=== PATIENT | male | born 1970 | race Caucasian/White ===

== ENCOUNTER 2019-01-28 08:31 | Emergency (ER) | payer SELFPAY ==
[2019-01-28] MEDS ORDERED: LIDOCAINE 5% (700 MG) TRANSDERMAL ADH..PATCH TP ONE (09:34)
[2019-01-28] MEDS ORDERED: OXYCODONE-ACETAMINOPHEN 5-325 MG TABLET PO ONE (09:34)
--- NOTE | 2019-01-28 10:09 | RADIOLOGY REPORT (SQ) ---
EXAM DESCRIPTION: CHEST 2 VIEWS COMPLETED DATE/TIME: 01/28/2019 9:56 am REASON FOR STUDY: right thoracic back pain COMPARISON: None. EXAM PARAMETERS: NUMBER OF VIEWS: two views TECHNIQUE: Digital Frontal and Lateral radiographic views of the chest acquired. RADIATION DOSE: NA LIMITATIONS: none FINDINGS: LUNGS AND PLEURA: Lung carrillo are hyperexpanded. No consolidation or effusions. Probable bullous formation in the upper lobes right greater than left. MEDIASTINUM AND HILAR STRUCTURES: No masses or contour abnormalities. HEART AND VASCULAR STRUCTURES: Heart normal size. No evidence for failure. BONES: No acute findings. HARDWARE: None in the chest. OTHER: No other significant finding. IMPRESSION: COPD. No acute findings. TECHNICAL DOCUMENTATION: JOB ID: [id number] [employer]- All Rights Reserved Reading location - IP/workstation name: [email or web address]
--- NOTE | 2019-01-28 10:32 | ER Document Report ---
HPI - HPI Patient complains to provider of: Right upper back pain Time Seen by Provider: 01/28/19 09:27 Onset: Other - 6 weeks Onset/Duration: Persistent Quality of pain: Sharp Pain Level: 5 Context: Patient presents complaining of right upper back pain for the past month and a half. Patient states pain is been worse over the past 2 days. Patient denies any injury. Patient states that pain causes him to stay up at night. Patient denies any midline back tenderness. Patient denies any fever history of IV drug use. Associated Symptoms: Other - Right upper back tenderness. denies: Fever, Headache Exacerbated by: Movement Relieved by: Denies Similar symptoms previously: No Recently seen / treated by doctor: No - ROS ROS below otherwise negative: Yes Systems Reviewed and Negative: Yes All other systems reviewed and negative - CONSTITUTIONAL Constitutional: DENIES: Fever, Chills - NEURO Neurology: DENIES: Headache, Weakness - CARDIOVASCULAR Cardiovascular: DENIES: Chest pain - GASTROINTESTINAL Gastrointestinal: DENIES: Nausea - MUSCULOSKELETAL Musculoskeletal: REPORTS: Back Pain - right upper back pain - DERM Skin Color: Normal Skin Problems: None Past Medical History - General Information source: Patient - Social History Smoking Status: Current Every Day Smoker Smoking Education Provided: Yes Frequency of alcohol use: Occasional Drug Abuse: None Occupation: construction Family History: Reviewed & Not Pertinent Patient has suicidal ideation: No Patient has homicidal ideation: No Pulmonary Medical History: Reports: Hx COPD Renal/ Medical History: Reports: Hx Kidney Stones. Denies: Hx Peritoneal Dialysis Past Surgical History: Reports: Hx Abdominal Surgery - hernia repair Vertical Provider Document - CONSTITUTIONAL Agree With Documented VS: Yes Exam Limitations: No Limitations General Appearance: WD/WN, No Apparent Distress - INFECTION CONTROL TRAVEL OUTSIDE OF THE [place] IN LAST 30 DAYS: No - HEENT HEENT: Atraumatic, Normal ENT Exam, Normocephalic - NECK Neck: Normal Inspection, Supple. negative: Lymphadenopathy-Left, Lymphadenopathy-Right - RESPIRATORY Respiratory: Breath Sounds Normal, No Respiratory Distress, Chest Non-Tender - CARDIOVASCULAR Cardiovascular: Regular Rate, Regular Rhythm, No Murmur Pulses: Normal: Radial - BACK Back: Abnormal Inspection - Right thoracic paraspinal tenderness, right trapezius muscle tenderness, tenderness reproduced with movement of right upper extremity and palpation Notes: No midline spinal tenderness step-off or deformity - MUSCULOSKELETAL/EXTREMETIES Musculoskeletal/Extremeties: MAEW, FROM, Non-Tender - No right shoulder joint tenderness - NEURO Level of Consciousness: Awake, Alert, Appropriate Motor/Sensory: No Motor Deficit, No Sensory Deficit - DERM Integumentary: Warm, Dry, No Rash Course - Re-evaluation Re-evalutation: 01/28/19 10:29 No abnormalities noted on chest x-ray. No midline spinal tenderness. Patient with reproducible muscular pain to the right trapezius area. 01/28/19 11:18 Patient states that he also is having right upper extremity numbness for the past week and decreased range of motion to the neck. Patient is requesting to know what is causing his symptoms and is not satisfied with chest x-ray only to evaluate his problem here today. It with good strength and muscle tone to bilateral upper extremities, 2+ radial pulse bilaterally. 01/28/19 12:[address] Elena, reviewed the patient's MRI results. Dr. Elena recommends discharge at this time with outpatient prescription for a steroid pack and outpatient follow-up with neuro spine orthopedic spine specialty. Recommends follow-up with pain management for likely injection as well. - Vital Signs Vital signs: Temp Pulse Resp BP Pulse Ox 97.6 F 78 18 145/107 H 98 01/28/19 08:35 01/28/19 08:35 01/28/19 08:35 01/28/19 08:35 01/28/19 08:35 - Diagnostic Test Radiology reviewed: Image reviewed, Reports reviewed Discharge - Discharge Clinical Impression: Upper back pain on right side, Cervical radicular pain Condition: Stable Disposition: HOME, SELF-CARE Instructions: Ice & Elevation (OM), Muscle Relaxers (OM), Radiculopathy (OM) Additional Instructions: Return immediately for any new or worsening symptoms Followup with your primary care provider, call tomorrow to make a followup ap pointment Prescriptions: Prednisone [Deltasone 20 mg Tablet] 3 tab PO DAILY 5 Days tablet Cyclobenzaprine HCl [Flexeril 10 Mg Tablet] 10 mg PO TID #15 tablet Lidocaine [Lidoderm 5% (700 mg) Transdermal Patch] 1 patch TP DAILY PRN #[id number] adh..patch PRN Reason: Forms: Smoking Cessation Education, Return to Work Referrals: [facility] [Provider Group] - Follow up as needed [facility] [Provider Group] - Follow up as needed
[2019-01-28 11:12] VITALS: BP 156/87
--- NOTE | 2019-01-28 12:40 | RADIOLOGY REPORT (SQ) ---
EXAM DESCRIPTION: MRI CERVICAL SPINE WITHOUT COMPLETED DATE/TIME: 01/28/2019 12:11 pm REASON FOR STUDY: RUE numb, decreased ROM to neck COMPARISON: None. TECHNIQUE: Sagittal and Axial imaging includes T1, T2, STIR and gradient echo sequences. LIMITATIONS: None. FINDINGS: ALIGNMENT: 3 mm retrolisthesis of C5 on C6. VERTEBRAE: Intact. BONE MARROW: Mild reactive changes. DISCS: Multilevel degenerative signal and moderate disc height loss at the C5-6 level. Mild disc hei ght loss at the C3-4 level and C6-7 level. HARDWARE: None in the spine. CORD AND BASE OF BRAIN: Normal in size and signal intensity. SOFT TISSUES: No soft tissue masses. C1-C2: No significant spinal stenosis. C2-C3: No significant spinal stenosis or exit foraminal stenosis. C3-C4: Mild central canal narrowing due to posterior spondylotic ridging and mild effacement of the a nterior CSF signal. Mild bilateral exit foraminal stenosis. C4-C5: No significant spinal stenosis or exit foraminal stenosis. C5-C6: Moderate central spinal stenosis due to 6 mm central disc protrusion -posterior spondylotic ri dging with effacement of the CSF signal, central canal is narrowed to 6.5 mm. There is mild deformat ion of the anterior spinal cord contour without focal abnormal spinal cord signal. Moderate C5-6 walker ateral neuroforaminal stenosis. C6-C7: No significant spinal stenosis. Mild bilateral exit foraminal stenosis due to posterior spond ylotic ridging. . C7-T1: No significant spinal stenosis or exit foraminal stenosis. UPPER THORACIC: Incompletely imaged. No significant spinal stenosis or exit foraminal stenosis. OTHER: No other significant finding. IMPRESSION: Moderate central spinal stenosis at C5-6 due to 6 mm central disc protrusion -posterior spondylotic ridging with effacement of the CSF signal, central canal is narrowed to 6.5 mm. There is mild deformation at this level of the anterior spinal cord contour without focal abnormal spinal cor d signal. Moderate C5-6 bilateral neuroforaminal stenosis. TECHNICAL DOCUMENTATION: JOB ID: [id number] [employer]- All Rights Reserved Reading location - IP/workstation name: [email or web address]
== END 2019-01-28 13:23 | disposition home or self-care (01) ==
LOC: ER 08:31
DX: M54.6 Pain in thoracic spine (principal); M54.2 Cervicalgia; F17.200 Nicotine dependence, unspecified, uncomplicated; J44.9 Chronic obstructive pulmonary disease, unspecified; Z87.442 Personal history of urinary calculi
CPT/HCPCS: 71046; 72141

== ENCOUNTER 2019-02-20 16:59 | Emergency (ER) | payer SELFPAY ==
--- NOTE | 2019-02-20 17:23 | ER Document Report ---
ED Medical Screen (RME) - General Chief Complaint: Knee Pain Stated Complaint: RIGHT KNEE PAIN Time Seen by Provider: 02/20/19 17:13 Mode of Arrival: Ambulatory Information source: Patient Notes: This 48-year-old male presents to the emergency department with right knee pain and swelling. He reports that he cut his knee last week. The cut itself looks like it is healing. He reports last night he started swelling with erythema warmth going down his leg. 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 He reports it feels the same. Denies fever vomiting diarrhea. The right knee and right lower leg is obviously swollen. Right knee feels warm. I have greeted and performed a rapid initial assessment of this patient. A comprehensive ED assessment and evaluation of the patient, analysis of test results and completion of the medical decision making process will be conducted by additional ED providers. Dictation of this chart was performed using voice recognition software; therefore, there may be some unintended grammatical errors. TRAVEL OUTSIDE OF THE [place] IN LAST 30 DAYS: No - Related Data Allergies/Adverse Reactions: amoxicillin [From Augmentin] Allergy (Verified 01/28/19 08:32) clavulanic acid [From Augmentin] Allergy (Verified 01/28/19 08:32) Past Medical History - Social History Chew tobacco use (# tins/day): No Frequency of alcohol use: None Drug Abuse: None Pulmonary Medical History: Reports: Hx COPD Renal/ Medical History: Reports: Hx Kidney Stones. Denies: Hx Peritoneal Dialysis Past Surgical History: Reports: Hx Abdominal Surgery - hernia repair Physical Exam - Vital signs Vitals: Temp Pulse Resp BP Pulse Ox 97.7 F 92 16 114/76 96 02/20/19 17:02 02/20/19 17:02 02/20/19 17:02 02/20/19 17:02 02/20/19 17:02 Course - Vital Signs Vital signs: Temp Pulse Resp BP Pulse Ox 97.7 F 92 16 114/76 96 02/20/19 17:02 02/20/19 17:02 02/20/19 17:02 02/20/19 17:02 02/20/19 17:02
--- NOTE | 2019-02-20 18:01 | RADIOLOGY REPORT (SQ) ---
EXAM DESCRIPTION: KNEE RIGHT 2 VIEWS COMPLETED DATE/TIME: 02/20/2019 5:34 pm REASON FOR STUDY: pain swelling COMPARISON: None. NUMBER OF VIEWS: Two views. TECHNIQUE: AP and lateral radiographic images acquired of the right knee. LIMITATIONS: None. FINDINGS: MINERALIZATION: Normal. BONES: No acute fracture or dislocation. No worrisome bone lesions. JOINT: No effusion. SOFT TISSUES: No soft tissue swelling. No radio-opaque foreign body. OTHER: No other significant finding. IMPRESSION: NEGATIVE STUDY OF THE RIGHT KNEE. NO RADIOGRAPHIC EVIDENCE OF ACUTE INJURY. TECHNICAL DOCUMENTATION: JOB ID: [id number] [employer]- All Rights Reserved Reading location - IP/workstation name: [email or web address]
[2019-02-20 18:12] LABS: ABSOLUTE BASOPHILS # (AUTO) 0.1 10^3/uL (0.0-0.2); ABSOLUTE EOSINOPHILS # (AUTO) 0.1 10^3/uL (0.0-0.6); ABSOLUTE LYMPHOCYTES (AUTO) 1.9 10^3/uL (0.5-4.7); ABSOLUTE MONOCYTES (AUTO) 0.5 10^3/uL (0.1-1.4); ABSOLUTE NEUT (AUTO) 10.1 10^3/uL (1.7-8.2); BASOPHILS % (AUTO) 0.8 % (0-2); EOSINOPHILS % (AUTO) 0.4 % (0-6); HEMATOCRIT 46.7 % (37.9-51.0); HEMOGLOBIN 16.2 g/dL (13.5-17.0); LYMPHOCYTES % (AUTO) 14.9 % (13-45); MEAN CORPUSCULAR HEMOGLOBIN 33.8 pg (27.0-33.4); MEAN CORPUSCULAR HGB CONC 34.6 g/dL (32.0-36.0); MEAN CORPUSCULAR VOLUME 98 fl (80-97); MONOCYTES % (AUTO) 4.3 % (3-13); PLATELET COUNT 275 10^3/uL (150-450); RED BLOOD COUNT 4.78 10^6/uL (4.35-5.55); RED CELL DISTRIBUTION WIDTH 13.3 % (11.5-14.0); SEGMENTED NEUTROPHILS % (AUTO) 79.6 % (42-78); TOTAL CELLS COUNTED % (AUTO) 100 %; WHITE BLOOD COUNT 12.7 10^3/uL (4.0-10.5)
--- NOTE | 2019-02-20 18:12 | ER Document Report ---
ED Extremity Problem, Lower - General Chief Complaint: Knee Pain Stated Complaint: RIGHT KNEE PAIN Time Seen by Provider: 02/20/19 17:13 Mode of Arrival: Ambulatory Notes: Patient is a 48-year-old male who presents to the emergency department with a chief complaint of right knee pain and swelling. Patient reports last week he cut the anterior aspect of his right knee on a nail. Patient reports his tetanus shot is up-to-date. Patient reports the puncture wound from the nail is healing well. Patient reports he developed some right knee pain last night and within the past 12 hours he has had significant increase in swelling to the right knee and redness that has extended down his right lower extremity. Mendoza nt reports he does have a history of flesh eating bacteria to his left hand. Patient states he is extremely concerned as the redness has spread to rapidly over the past 12 hours. Patient denies history of diabetes. Patient denies a history of MRSA. TRAVEL OUTSIDE OF THE [place] IN LAST 30 DAYS: No - Related Data Allergies/Adverse Reactions: amoxicillin [From Augmentin] Allergy (Verified 01/28/19 08:32) clavulanic acid [From Augmentin] Allergy (Verified 01/28/19 08:32) Past Medical History - General Information source: Patient - Social History Smoking Status: Current Every Day Smoker Chew tobacco use (# tins/day): No Frequency of alcohol use: None Drug Abuse: None Lives with: Family Family History: Reviewed & Not Pertinent Patient has suicidal ideation: No Patient has homicidal ideation: No - Past Medical History Cardiac Medical History: Reports: None Pulmonary Medical History: Reports: Hx COPD EENT Medical History: Reports: None Neurological Medical History: Reports: None Endocrine Medical History: Reports: None Renal/ Medical History: Reports: Hx Kidney Stones. Denies: Hx Peritoneal Dialysis Malignancy Medical History: Reports None GI Medical History: Reports: None Musculoskeletal Medical History: Reports None Skin Medical History: Reports Other - Hx. Flesh eating bacteria left hand Psychiatric Medical History: Reports: None Traumatic Medical History: Reports: None Infectious Medical History: Reports: None Past Surgical History: Reports: Hx Abdominal Surgery - hernia repair Review of Systems - Review of Systems Constitutional: No symptoms reported EENT: No symptoms reported Cardiovascular: No symptoms reported Respiratory: No symptoms reported Gastrointestinal: No symptoms reported Genitourinary: No symptoms reported Male Genitourinary: No symptoms reported Musculoskeletal: See HPI Skin: See HPI Hematologic/Lymphatic: No symptoms reported Neurological/Psychological: No symptoms reported Physical Exam - Vital signs Vitals: Temp Pulse Resp BP Pulse Ox 97.7 F 92 16 114/76 96 02/20/19 17:02 02/20/19 17:02 02/20/19 17:02 02/20/19 17:02 02/20/19 17:02 - Notes Notes: GENERAL: Well-appearing, well-nourished and in no acute distress. HEAD: Atraumatic, normocephalic. EYES: Pupils equal round and reactive to light, extraocular movements intact, sclera anicteric, conjunctiva are normal. ENT: Nares patent, oropharynx clear without exudates. Moist mucous membranes. NECK: Normal range of motion, supple without lymphadenopathy or JVD. LUNGS: Breath sounds clear to auscultation bilaterally and equal. No wheezes rales or rhonchi. HEART: Regular rate and rhythm without murmurs, rubs or gallops. ABDOMEN: Soft, nontender, normoactive bowel sounds. No guarding, no rebound. No masses appreciated. BACK: No cervical, thoracic, lumbar midline tenderness. No saddle anesthesia, normal distal neurovascular exam. GENITOURINARY: Deferred. EXTREMITIES: Full ROM to right knee, + erythema and edema noted to the right knee, + erythema noted to the right lower extremity, cellulitic appearing. No open lesions or wounds. NEUROLOGICAL: Cranial nerves II through XII grossly intact. Normal speech, normal gait. PSYCH: Normal mood, normal affect. SKIN: Warm, Dry, normal turgor, no rashes or lesions noted. Course - Re-evaluation Re-evalutation: 02/20/19 20:20 Prior to discharge patient was visibly upset that he had been here for multiple hours. Patient states he is ready to go home. I did inform him that some of his inflammatory markers were elevated and he has a mildly elevated white blood cell count. Patient states even if I wanted him to stay he would not. Patient requesting oral antibiotics and wanting to go home. I did inform the patient that he is at significant risk for worsening of the infection and cellulitis. Patient verbalized understanding and states he wants to go home. I did give him his first dose of oral antibiotics and send him home with 2 prescriptions. I did give the patient strict return precautions. At time of discharge patient is not hypotensive, tachycardic or febrile. - Vital Signs Vital signs: Temp Pulse Resp BP Pulse Ox 97.8 F 89 16 123/83 98 02/20/19 20:07 02/20/19 20:07 02/20/19 20:07 02/20/19 20:07 02/20/19 20:07 - Laboratory Result Diagrams: 02/20/19 17:53 02/20/19 17:53 Laboratory results interpreted by me: 02/20/19 02/20/19 17:53 17:53 WBC 12.7 H MCV 98 H MCH 33.8 H Absolute Neuts (auto) 10.1 H Seg Neutrophils % 79.6 H ESR 23 H C-Reactive Protein 65.9 H Total Protein 8.4 H Patient has a slightly elevated white blood cell count at 12.7, ESR is 23, C- reactive protein is elevated at 65.9. Patient does not have anemia or significant alteration in his electrolytes. Liver function is normal. Laboratory 02/20/19 02/20/19 17:53 17:53 WBC 12.7 H RBC 4.78 Hgb 16.2 Hct 46.7 MCV 98 H MCH 33.8 H MCHC 34.6 RDW 13.3 Plt Count 275 Lymph % (Auto) 14.9 Barnes % (Auto) 4.3 Eos % (Auto) 0.4 Baso % (Auto) 0.8 Absolute Neuts (auto) 10.1 H Absolute Lymphs (auto) 1.9 Absolute Monos (auto) 0.5 Absolute Eos (auto) 0.1 Absolute Basos (auto) 0.1 Seg Neutrophils % 79.6 H ESR 23 H Sodium 138.6 Potassium 3.9 Chloride 101 Carbon Dioxide 26 Anion Gap 12 BUN 17 Creatinine 0.78 Est GFR ( Amer) > 60 Est GFR (MDRD) Non-Af > 60 Glucose 92 Calcium 10.2 Total Bilirubin 1.0 Direct Bilirubin 0.1 Neonat Total Bilirubin Not Reportable Neonat Direct Bilirubin Not Reportable Neonat Indirect Bili Not Reportable AST 28 ALT 20 Alkaline Phosphatase 94 C-Reactive Protein 65.9 H Total Protein 8.4 H Albumin 4.9 - Diagnostic Test Radiology reviewed: Reports reviewed Radiology results interpreted by me: 02/20/19 18:10 Knee X-Ray 10/02/19 17:21 IMPRESSION: NEGATIVE STUDY OF THE RIGHT KNEE. NO RADIOGRAPHIC EVIDENCE OF ACUTE INJURY. Discharge - Discharge Clinical Impression: Cellulitis of right leg Condition: Stable Disposition: HOME, SELF-CARE Additional Instructions: Today you are seen in the emergency department for right knee swelling and redness. It does appear that you have a cellulitis. Cellulitis is an infection of the skin and underlying soft tissues. The x-ray was negative for any acute bony abnormality of the knee. At this time you are able to fully move the knee joint. Your inflammatory markers and your blood work was extremely elevated. This can happen when you do have inflammation and infection. You are at increased risk for significant worsening of your cellulitis. Please take your oral antibiotics as prescribed and for its full completed course. Please return to the emergency department immediately if you develop fever, worsening redness that streaks up the leg, worsening knee pain, inability to move the knee at the joint or any other concerning signs or symptoms. Cellulitis You have an infection of your skin and underlying soft tissues called cellulitis. This is due to bacteria, which can enter through any break in the skin, or even through an irritated hair follicle. Untreated, cellulitis will usually worsen. Antibiotics are required. Usually, warm packs or warm soaks, and elevation of the infected area are recommended. You should start getting better within 24 to 36 hours. Most infections respond quickly to the right medication. Follow-up care is important, however, to check for abscess (boil) formation, unsuspected foreign body, or resistant infection. If you develop fever, chills, or if the area of infection is becoming rapidly more swollen or painful, call the doctor at once. Prescriptions: Sulfamethoxazole/Trimethoprim [Bactrim Ds Tablet] 1 each PO BID 7 Days #14 tablet Cephalexin Monohydrate [Keflex 500 mg Capsule] 500 mg PO Q6H 7 Days #28 capsule
[2019-02-20] MEDS ORDERED: ONDANSETRON HCL INJ/PF 4 MG/2 ML SDV IV ONE (18:17)
[2019-02-20] MEDS ORDERED: MORPHINE SULFATE 10 MG/ML INJ IV ONE (18:17)
[2019-02-20 18:40] LABS: ALBUMIN 4.9 g/dL (3.5-5.0); ALKALINE PHOSPHATASE 94 U/L (38-126); ANION GAP 12 (5-19); ASPARTATE AMINO TRANSFERASE 28 U/L (17-59); BILIRUBIN,DIRECT 0.1 mg/dL (0.0-0.4); BLOOD UREA NITROGEN 17 mg/dL (7-20); C-REACTIVE PROTEIN 65.9 mg/L (<10.0); CALCIUM 10.2 mg/dL (8.4-10.2); CARBON DIOXIDE 26 mmol/L (22-30); CHLORIDE 101 mmol/L (98-107); GLUCOSE 92 mg/dL (75-110); POTASSIUM 3.9 mmol/L (3.6-5.0); TOTAL PROTEIN 8.4 g/dL (6.3-8.2)
[2019-02-20 19:05] LABS: ERYTHROCYTE SEDIMENTATION RATE 23 mm/hr (0-20)
[2019-02-20] MEDS ORDERED: SULFAMETHOXAZOLE/TRIMETHOPRIM 800-160 MG TABLET PO ONE (19:59)
[2019-02-20] MEDS ORDERED: CEPHALEXIN 500 MG CAPSULE PO ONE (19:59)
[2019-02-20 20:08] VITALS: BP 123/83
== END 2019-02-20 20:17 | disposition home or self-care (01) ==
LOC: ER 16:59
DX: L03.115 Cellulitis of right lower limb (principal); M25.561 Pain in right knee; D72.829 Elevated white blood cell count, unspecified; F17.200 Nicotine dependence, unspecified, uncomplicated; J44.9 Chronic obstructive pulmonary disease, unspecified; Z88.0 Allergy status to penicillin
CPT/HCPCS: 36415; 87040; 85025; 85652; 86140; 80053; 73560; J2270; J2405

== ENCOUNTER 2020-03-02 10:22 | Emergency (ER) | payer SELFPAY ==
[2020-03-02 11:00] VITALS: BP 141/80
[2020-03-02] MEDS ORDERED: NORMAL SALINE 1000 ML 1,000 ML IV ONE (11:13)
[2020-03-02] MEDS ORDERED: ONDANSETRON HCL INJ/PF 4 MG/2 ML SDV IV ONE ×2 (11:13→13:21)
[2020-03-02] MEDS ORDERED: MORPHINE SULFATE 10 MG/ML INJ IV ONE (11:41)
[2020-03-02] MEDS ORDERED: LORAZEPAM INJ 2 MG/1 ML VIAL IV ONE (11:41)
--- NOTE | 2020-03-02 11:42 | ER Document Report ---
ED General - General Chief Complaint: Nausea/Vomiting Stated Complaint: VOMITING Time Seen by Provider: 03/02/20 11:12 Primary Care Provider: [facility] [Provider Group] - Follow up in 3-5 days TRAVEL OUTSIDE OF THE [place] IN LAST 30 DAYS: No - HPI Notes: 49-year-old male with history of kidney stones to the emergency department with complaints of nausea vomiting and epigastric abdominal pain that has persisted over the weekend. He states on Monday he thought that he was passing a kidney stone. He states that he did pass it and had relief of his left-sided flank pain. However after that he continued to vomit and then developed epigastric pain. Denies any fevers or chills. Denies any hematuria. Denies any further flank pain. He denies any chest pain or shortness of breath. He denies any cough. He is not been around anybody has been sick. Not recently been traveling. Does admit to some slight diarrhea. Denies any blood in the diarrhea or vomit. - Related Data Allergies/Adverse Reactions: amoxicillin [From Augmentin] Allergy (Verified 03/02/20 11:07) clavulanic acid [From Augmentin] Allergy (Verified 03/02/20 11:07) Past Medical History - General Information source: Patient - Social History Smoking Status: Current Every Day Smoker Chew tobacco use (# tins/day): No Frequency of alcohol use: Rare Drug Abuse: Marijuana Family History: Reviewed & Not Pertinent Patient has homicidal ideation: No Pulmonary Medical History: Reports: Hx COPD Renal/ Medical History: Reports: Hx Kidney Stones. Denies: Hx Peritoneal Dialysis Past Surgical History: Reports: Hx Abdominal Surgery - hernia repair Review of Systems - Review of Systems Constitutional: denies: Chills, Fever EENT: No symptoms reported Cardiovascular: denies: Chest pain, Palpitations, Syncope, Dizziness, Ligh theaded Respiratory: denies: Cough, Short of breath Gastrointestinal: Abdominal pain, Diarrhea, Nausea, Vomiting. denies: Blood streaked bowels, Blood in vomit Genitourinary: Flank pain - See HPI. denies: Burning, Dysuria, Hematuria Musculoskeletal: No symptoms reported Skin: No symptoms reported Hematologic/Lymphatic: No symptoms reported Neurological/Psychological: No symptoms reported -: Yes All other systems reviewed and negative Physical Exam - Vital signs Vitals: Temp Pulse Resp BP Pulse Ox 97.6 F 51 L 24 H 141/80 H 100 03/02/20 10:56 03/02/20 10:56 03/02/20 10:56 03/02/20 10:56 03/02/20 10:56 Interpretation: Normal - General General appearance: Appears well, Alert, Anxious - HEENT Head: Normocephalic, Atraumatic Eyes: Normal Pupils: PERRL - Respiratory Respiratory status: No respiratory distress Chest status: Nontender Breath sounds: Normal. No: Rales, Rhonchi, Wheezing Chest palpation: Normal - Cardiovascular Rhythm: Regular Heart sounds: Normal auscultation Murmur: No - Abdominal Inspection: Normal Distension: No distension Bowel sounds: Normal Tenderness: Tender - There is tenderness to palpation to the epigastrium. There is negative Chavez sign. No flank pain. No tenderness to palpation at McBurney's point. There is no distention. No: McBurney's point, Chavez's sign, Guarding, Rebound Organomegaly: No organomegaly - Back Back: Normal, Nontender. No: CVA tenderness - Neurological Neuro grossly intact: Yes Cognition: Normal Orientation: AAOx4 [place] Coma Scale Eye Opening: Spontaneous [place] Coma Scale Verbal: Oriented [place] Coma Scale Motor: Obeys Commands [place] Coma Scale Total: 15 Speech: Normal Cranial nerves: Normal Cerebellar coordination: Normal Motor strength normal: LUE, RUE, LLE, RLE Additional motor exam normals: Equal delicatessen manager. No: Pronator drift Sensory: Normal - Psychological Associated symptoms: Normal affect, Normal mood - Skin Skin Temperature: Warm Skin Moisture: Dry Skin Color: Normal Course - Re-evaluation Re-evalutation: 03/02/20 13:33 Patient is starting to feel better. He states he has a little bit of nausea but not nearly as bad as when I first evaluated him. He has reassuring labs with a mildly elevated white count which may be from the vomiting. He states his pain is gotten a lot better as well. We will give a little bit more fluids and some more nausea medicine and then round on the patient again. He agrees with the plan. Impression: Nausea, vomiting, diarrhea, epigastric abdominal pain. Patient improved after pain meds, antiemetics here in the emergency department. His lab work is very reassuring. Lipase is normal. Noted small amount of red blood cells in urine. He has no flank pain. He states this does not feel like his kidney pain when he gets a kidney stone. He is able to urinate. He does not have an infected urinalysis. Do not think he needs further imaging tonight. I have encouraged him to return if he gets worse. Patient agrees with the plan. - Vital Signs Vital signs: Temp Pulse Resp BP Pulse Ox 97.6 F 51 L 24 H 141/80 H 100 03/02/20 16:14 03/02/20 10:56 03/02/20 10:56 03/02/20 10:56 03/02/20 10:56 - Laboratory Result Diagrams: 03/02/20 11:37 03/02/20 11:37 Laboratory results interpreted by me: 03/02/20 03/02/20 03/02/20 11:37 11:37 11:37 WBC 11.5 H Absolute Neuts (auto) 8.9 H Sodium 136.8 L Glucose 125 H Lipase 17.6 L Urine Blood SMALL H Urine Ascorbic Acid 40 H Discharge - Discharge Clinical Impression: Epigastric pain Nausea & vomiting Qualifiers: Vomiting type: unspecified Vomiting Intractability: non-intractable Qualified Code(s): R11.2 - Nausea with vomiting, unspecified Diarrhea Qualifiers: Diarrhea type: unspecified type Qualified Code(s): R19.7 - Diarrhea, unspe cified Condition: Stable Disposition: HOME, SELF-CARE Instructions: Diarrhea, Nonspecific ([facility]), Vomiting ([facility]) Additional Instructions: Push fluids. Take medicine as prescribed. [place] diet of bananas, rice, applesauce, toast Jell-O. Return if any worsening symptoms. Follow-up with primary care. Prescriptions: Dicyclomine HCl [Bentyl 20 mg Tablet] 20 mg PO QID PRN #20 tablet PRN Reason: Promethazine HCl [Phenergan 25 mg Tablet] 1 - 2 tab PO Q6H PRN #15 tablet PRN Reason: Forms: Return to Work Referrals: [facility] [Provider Group] - Follow up in 3-5 days
[2020-03-02 12:12] LABS: ABSOLUTE BASOPHILS # (AUTO) 0.1 10^3/uL (0.0-0.2); ABSOLUTE MONOCYTES (AUTO) 0.5 10^3/uL (0.1-1.4); ABSOLUTE NEUT (AUTO) 8.9 10^3/uL (1.7-8.2); BASOPHILS % (AUTO) 0.7 % (0-2); EOSINOPHILS % (AUTO) 0.1 % (0-6); HEMATOCRIT 47.4 % (37.9-51.0); HEMOGLOBIN 16.5 g/dL (13.5-17.0); LYMPHOCYTES % (AUTO) 17.4 % (13-45); MEAN CORPUSCULAR HEMOGLOBIN 32.6 pg (27.0-33.4); MEAN CORPUSCULAR HGB CONC 34.9 g/dL (32.0-36.0); MEAN CORPUSCULAR VOLUME 94 fl (80-97); MONOCYTES % (AUTO) 4.5 % (3-13); PLATELET COUNT 349 10^3/uL (150-450); RED BLOOD COUNT 5.06 10^6/uL (4.35-5.55); RED CELL DISTRIBUTION WIDTH 12.9 % (11.5-14.0); SEGMENTED NEUTROPHILS % (AUTO) 77.3 % (42-78); TOTAL CELLS COUNTED % (AUTO) 100 %; WHITE BLOOD COUNT 11.5 10^3/uL (4.0-10.5)
[2020-03-02 12:16] LABS: APPEARANCE,URINE CLEAR; BILIRUBIN,URINE NEGATIVE (NEGATIVE); COLOR,URINE YELLOW; GLUCOSE, URINE NEGATIVE (NEGATIVE); KETONES,URINE NEGATIVE (NEGATIVE); PROTEIN,URINE NEGATIVE (NEGATIVE); URINE SPECIFIC GRAVITY 1.013; UROBILINOGEN,URINE NEGATIVE mg/dL (<2.0)
[2020-03-02 12:30] LABS: ALBUMIN 4.5 g/dL (3.5-5.0); ALKALINE PHOSPHATASE 83 U/L (38-126); ANION GAP 10 (5-19); ASPARTATE AMINO TRANSFERASE 22 U/L (17-59); BILIRUBIN,DIRECT 0.3 mg/dL (0.0-0.4); BILIRUBIN,TOTAL 0.9 mg/dL (0.2-1.3); BLOOD UREA NITROGEN 14 mg/dL (7-20); CALCIUM 9.9 mg/dL (8.4-10.2); CARBON DIOXIDE 27 mmol/L (22-30); CHLORIDE 100 mmol/L (98-107); GLUCOSE 125 mg/dL (75-110); POTASSIUM 4.3 mmol/L (3.6-5.0); TOTAL PROTEIN 7.3 g/dL (6.3-8.2)
[2020-03-02] MEDS ORDERED: NORMAL SALINE 500 ML IV ONE (13:21)
[2020-03-02] MEDS ORDERED: KETOROLAC TROMETHAMINE INJ/PF 30 MG/1 ML SDV IV ONE (15:47)
== END 2020-03-02 16:14 | disposition home or self-care (01) ==
LOC: ER 10:22
DX: R10.13 Epigastric pain (principal); R11.2 Nausea with vomiting, unspecified; R19.7 Diarrhea, unspecified; F17.200 Nicotine dependence, unspecified, uncomplicated; J44.9 Chronic obstructive pulmonary disease, unspecified; Z87.442 Personal history of urinary calculi
CPT/HCPCS: 96376; 99284; 96361; 96374; 96375; 36415; 83690; 85025; 80053; 81001; J1885; J2270; J2060; J2405; J7030; J7040